=== PATIENT | female | born 1935 | race Caucasian/White ===

== ENCOUNTER 2018-03-17 09:50 | Day surgery (SDC) | payer MEDICARE, BC ==
[2018-03-14 17:47] VITALS: BMI 38.2
[~2018-03-17 09:50] MED LIST: LACTATED RINGERS 1,000 ML IV SCH; LIDOCAINE 1% 20 ML VIAL (10MG/ML) FOR IV START INTRADERMA PRN; MIDAZOLAM 2 MG/2 ML VIAL IV PRN
[2018-03-17 10:30] VITALS: RESP 18; TEMP 97.6
[2018-03-17] MEDS ORDERED: LIDOCAINE 1% INJ 10MG/ML (20 ML MDV) ONE (11:40)
[2018-03-17] MEDS ORDERED: KETAMINE 10 MG/ML 20 ML VIAL ONE (11:40)
[2018-03-17] MEDS ORDERED: PROPOFOL 10 MG/ML 20 ML VIAL IV ONE (11:40)
[2018-03-17 13:17] VITALS: BP 146/79; PULSE 85
--- NOTE | 2018-03-17 14:21 | P.PCN ---
Date of Procedure: 03/17/18 Description of Procedure: Brief history: Patient is a pleasant 82-year-old female who was previously seen at [facility] with complaints of melena and anemia of acute blood loss. At that time the EGD was done with multiple AVMs seen and the colonoscopy deferred due to a poor prep. She has been scheduled for an elective upper endoscopy for treatment of the arteriovenous malformations as well as colonoscopy as a part of evaluation of anemia. Procedure performed: Esophagogastroduodenoscopy with argon plasma coagulation treatment of arteriovenous malformations Colonoscopy with polypectomy Estimated blood loss: Minimal. Preoperative diagnosis: Anemia of acute blood loss, gastrointestinal hemorrhage, history of arteriovenous malformations Anesthesia: MAC Procedure: After informed consent was obtained from the patient was brought into the endoscopy unit and IV sedation was administered by anesthesia under continuous monitoring. Initially upper endoscopy was done. The Olympus GF 190 video endoscope was inserted inserted into the mouth and esophagus intubated without any difficulty and was gradually advanced into the stomach and duodenum and carefully examined. The bulb and second part of the duodenum appeared normal with 3 nonbleeding arteriovenous malformations noted. These were treated with argon plasma coagulation therapy. The scope was then withdrawn into the stomach adequately insufflated with air and upon careful examination the antrum and body, cardia and fundus appeared normal. The scope was then withdrawn into the esophagus. The GE junction was located at 37 cm to the incisors. It appeared regular with no erythema erosions or ulcerations. Rest of the esophagus appeared normal. Small hiatal hernia was noted. Patient tolerated the procedure well. At this time the patient continued to remain sedation. Initial digital rectal examination was normal. Olympus CF 190 video colonoscope was then inserted into the rectum and gradually advanced to the cecum without any difficulty. Terminal ileum was intubated and appeared normal. Careful examination was performed as the scope was gradually being withdrawn. The prep was excellent. The cecum, ascending colon, transverse colon, descending colon, sigmoid colon and rectum appeared normal. 2 diminutive polyps removed with cold forceps polypectomy 1 in the transverse colon measuring 2 mm and a second in the rectum measuring 3 mm. Moderate scattered diverticulosis in sigmoid and descending colon characterized by small and large mouthed diverticula. Retroflexion was performed in the rectum and no lesions were noted, moderate internal and external hemorrhoids noted. Patient tolerated the procedure well. Impression: 1. 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 Polypectomy of 2 polyps one in the transverse colon and a second in the rectum taken by cold forcep polypectomy 93. Diverticulosis 4. Internal and external hemorrhoids Recommendations: Findings of this examination were discussed with the patient as well as her son. Okay for high-fiber diet. Await pathology from biopsies, continue iron supplementation with follow-up with primary care physician as previously scheduled. If further GI bleeding and would recommend capsule endoscopy.
== END 2018-03-17 13:42 | disposition home or self-care (01) ==
LOC: ORWHC2ENDO 09:50
PROVIDERS: ATTEND Internal Medicine
DX: Q27.33 Arteriovenous malformation of digestive system vessel (principal); D62 Acute posthemorrhagic anemia; K63.5 Polyp of colon; K62.1 Rectal polyp; K57.30 Diverticulosis of large intestine without perforation or abscess without bleeding; K64.8 Other hemorrhoids; K64.4 Residual hemorrhoidal skin tags; K44.9 Diaphragmatic hernia without obstruction or gangrene; K21.9 Gastro-esophageal reflux disease without esophagitis; I10 Essential (primary) hypertension; E07.9 Disorder of thyroid, unspecified; Z88.1 Allergy status to other antibiotic agents; Z88.2 Allergy status to sulfonamides; Z79.890 Hormone replacement therapy; Z79.899 Other long term (current) drug therapy; Z96.653 Presence of artificial knee joint, bilateral; Z90.11 Acquired absence of right breast and nipple; Z85.3 Personal history of malignant neoplasm of breast
CPT/HCPCS: 88305; 45380; 43255; J2001; J2704; 43270